=== PATIENT | male | born 1995 | race American Indian/Alaskan Native ===

== ENCOUNTER 2021-07-24 13:22 | Emergency (ER) | payer SELFPAY ==
[2021-07-24 13:40] VITALS: BP 122/72
[2021-07-24] MEDS ORDERED: IBUPROFEN 600 MG TAB PO ONE (14:03)
--- NOTE | 2021-07-24 14:04 | Emergency Department Report ---
ED Fall HPI - General Chief Complaint: Fall Stated Complaint: FALL Time Seen by Provider: 07/24/21 13:35 Source: patient Mode of arrival: Ambulatory - History of Present Illness Initial Comments: 26 year old male presents to ED with complaints of right rib pain after fall 5 days ago. Patient states he had open his door and his dog came running in and in process tripped him and caused him to fall. Patient states he landed on his right side on concrete step. He denies head injury. HE states he has been having intermittent pain right ribs since fall. He states pain is worse with movement and when he coughs. He has not noticed any bruising, abrasions, lacerations, or swelling. He denies any abdominal pain or hematuria. He has not been taking anything for pain. MD Complaint: fall, other (Right rib injury/pain ) -: days(s) (5) - Related Data Previous Rx's Medication Instructions Recorded Last Taken Type Ibuprofen [Motrin] 600 mg PO Q8H PRN #30 tablet 07/24/21 Unknown Rx methOCARBAMOL [Robaxin TAB] 500 mg PO Q8H PRN #30 tablet 07/24/21 Unknown Rx Allergies Allergy/AdvReac Type Severity Reaction Status Date / Time No Known Allergies Allergy Verified 07/24/21 13:56 ED Review of Systems ROS: Stated complaint: FALL Other details as noted in HPI Comment: All other systems reviewed and negative Constitutional: denies: chills, fever Eyes: denies: eye pain, eye discharge, vision change ENT: denies: ear pain, throat pain Respiratory: denies: cough, shortness of breath, SOB with exertion, SOB at rest, wheezing Cardiovascular: other (right rib pain ). denies: chest pain, palpitations Gastrointestinal: denies: abdominal pain, nausea, vomiting, diarrhea, constipation, hematemesis, hematochezia Musculoskeletal: denies: back pain, joint swelling, arthralgia Skin: denies: rash, lesions, change in color, change in hair/nails, pruritus Neurological: denies: headache, weakness, numbness, paresthesias, confusion, abnormal gait, vertigo Psychiatric: denies: anxiety, depression, auditory hallucinations, visual hallucinations, homicidal thoughts, suicidal thoughts Hematological/Lymphatic: denies: easy bleeding, easy bruising, swollen glands ED Past Medical Hx - Social History Smoking Status: Current Some Day Smoker Substance Use Type: None - Medications Home Medications: Home Medications Medication Instructions Recorded Confirmed Last Taken Type Ibuprofen [Motrin] 600 mg PO Q8H PRN #30 tablet 07/24/21 Unknown Rx methOCARBAMOL [Robaxin TAB] 500 mg PO Q8H PRN #30 tablet 07/24/21 Unknown Rx ED Physical Exam - General Limitations: No Limitations General appearance: alert, in no apparent distress - Head Head exam: Present: atraumatic, normocephalic, normal inspection - Eye Eye exam: Present: normal appearance, PERRL, EOMI Pupils: Present: normal accommodation - Neck Neck exam: Present: normal inspection, full ROM - Respiratory Respiratory exam: Present: normal lung sounds bilaterally, chest wall tenderness (point ttp right lateral lower ribs. No apparent bruising, no flail chest or other deformity, no swelling or abrasion noted. ). Absent: respiratory di stress, wheezes, rales, rhonchi, stridor - Cardiovascular Cardiovascular Exam: Present: regular rate, normal rhythm, normal heart sounds - GI/Abdominal GI/Abdominal exam: Present: soft. Absent: distended, tenderness, guarding, rebound - Neurological Exam Neurological exam: Present: alert, oriented X3, CN II-XII intact, normal gait - Psychiatric Psychiatric exam: Present: normal affect, normal mood - Skin Skin exam: Present: intact ED Course Vital Signs 07/24/21 13:36 Temperature 97.8 F Pulse Rate 73 Respiratory 14 Rate Blood Pressure 122/72 [Right] O2 Sat by Pulse 99 Oximetry ED Medical Decision Making - Radiology Data Radiology results: report reviewed Patient: BERNA VANN MR#: [id number] : 1995 Acct:[id number] Age/Sex: 26 / M ADM Date: 07/24/21 Loc: ED Attending Dr: Ordering Physician: SERJIO SHARMA Date of Service: 07/24/21 Procedure(s): XR ribs UNI w PA Chest 3+V RT Accession Number(s): [id number] cc: SERJIO SHARMA Fluoro Time In Minutes: RIGHT RIBS 4 VIEWS INDICATION: Right rib pain after fall. COMPARISON: None available. FINDINGS: RIBS: No acute, displaced fracture or other acute abnormality. CHEST: No acute findings. No pneumothorax. ADDITIONAL FINDINGS: No additional significant findings. IMPRESSION: 1. No acute abnormality. Signer Name: Anthony Perdomo MD Signed: 07/24/2021 2:47 PM Workstation Name: [email or web address] Transcribed By: TEMI Dictated By: Anthony Perdomo MD Electronically Authenticated By: Anthony Perdomo MD Signed Date/Time: 07/24/211446 DD/ 45 TD/TT: - Medical Decision Making Xray rib/chest shows nothing acute. Pt is not in any significant pain nor respiratory distress. No flail chest or deformity, swelling or bruising noted chest. He has no wheezing, rales or rhonchi or stridor. His VS are stable. Suspect rib contusion at this time. Discussed xray results, suspected dx and treatment plan with patient. Patient was stable at time of d/c. Critical care attestation.: If time is entered above; I have spent that time in minutes in the direct care of this critically ill patient, excluding procedure time. ED Disposition Clinical Impression: Contusion of rib on right side Disposition: 01 HOME / SELF CARE / HOMELESS Is pt being admited?: No Does the pt Need Aspirin: No Condition: Stable Instructions: Rib Contusion Additional Instructions: I recommend that you take the motrin and the muscle relaxer as prescribed to help with pain. Do not bind or wrap your ribs. You should start to feel better in 1-2 weeks, if not follow up with PCP. REturn to ED if worse. Prescriptions: Ibuprofen [Motrin] 600 mg PO Q8H PRN #30 tablet PRN Reason: Pain methOCARBAMOL [Robaxin TAB] 500 mg PO Q8H PRN #30 tablet PRN Reason: Muscle spasm Referrals: [facility] [Provider Group] - 7-10 days Forms: Work/School Release Form(ED) Time of Disposition: 14:58
--- NOTE | 2021-07-24 14:52 | XRay Report ---
RIGHT RIBS 4 VIEWS INDICATION: Right rib pain after fall. COMPARISON: None available. FINDINGS: RIBS: No acute, displaced fracture or other acute abnormality. CHEST: No acute findings. No pneumothorax. ADDITIONAL FINDINGS: No additional significant findings. IMPRESSION: 1. No acute abnormality. Signer Name: Anthony Perdomo MD Signed: 07/24/2021 2:47 PM Workstation Name: [email or web address]
== END 2021-07-24 15:03 | disposition home or self-care (01) ==
LOC: ED 13:22
DX: S20.211A Contusion of right front wall of thorax, initial encounter (principal); F17.200 Nicotine dependence, unspecified, uncomplicated; W18.39XA Other fall on same level, initial encounter; Y92.89 Other specified places as the place of occurrence of the external cause; Y99.8 Other external cause status
CPT/HCPCS: 99283